=== PATIENT | female | born 1975 | race African-American/Black ===

== ENCOUNTER → 2018-08-01 | Outpatient (CLI) | payer OTHER ==
[~2018-08-01] MED LIST: REGADENOSON 0.4 MG/5 ML DISP.SYRIN. IV ONE
--- NOTE | 2018-08-01 13:32 | PCVCIMAG ---
APPROVED REPORT Study performed: 08/01/2018 11:34:44 EXAM: Comprehensive 2D, Doppler, and color-flow Echocardiogram Patient Location: Echo lab Status: routine BSA: 1.97 HR: 89 bpmBP: 128/84 mmHg Rhythm: NSR Other Information Study Quality: Adequate Indications Dyspnea Chest Pain PSVT 2D Dimensions IVSd: 9.63 (7-11mm) LVDd: 41.48 mm PWd: 8.91 (7-11mm)Ascending Ao: 27.19 (22-36mm) LVDs: 31.71 (25-40mm) Left Atrium: 39.03 (27-40mm) Aortic Root: 28.29 mm LV Single Plane 4CH: 50.77 % LV Single Plane 2CH: 51.80 % Biplane EF: 50.1 % Volumes Left Atrial Volume (Systole) Single Plane 4CH: 58.78 mLSingle Plane 2CH: 52.38 mL LA ESV Index: 29.00 mL/m2 Aortic Valve AoV Peak Suhail.: 1.26 m/s AO Peak Gr.: 6.32 mmHgLVOT Max P.76 mmHg LVOT Max V: 0.97 m/s Mitral Valve E/A Ratio: 1.2 MV Decel. Time: 225.10 ms MV E Max Suhail.: 0.73 m/s MV A Suhail.: 0.61 m/s IVRT: 89.97 ms Pulmonary Valve PV Peak Suhail.: 0.95 m/sPV Peak Gr.: 3.61 mmHg Pulmonary Vein P Vein S: 0.32 m/sP Vein A: 0.34 m/s P Vein D: 0.46 m/sP Vein A Dur.: 107.3 msec P Vein S/D Ratio: 0.70 Tricuspid Valve TR Peak Suhail.: 2.20 m/s TR Peak Gr.: 19.40 mmHg TV Vmax: 0.56 m/s Left Ventricle The left ventricle is normal size. There is normal LV segmental wall motion. There is normal left ventricular wall thickness. Left ventricular systolic function is normal. The left ventricular ejection fraction is within the normal range. LVEF is 50-55%. Grade I - abnormal relaxation pattern. Right Ventricle The right ventricle is normal size. The right ventricular systolic function is normal. Atria The left atrium size is normal. The right atrium size is normal. Aortic Valve The aortic valve is normal in structure. No aortic regurgitation is present. There is no aortic valvular stenosis. Mitral Valve The mitral valve is normal in structure. Trace mitral regurgitation. No evidence of mitral valve stenosis. Tricuspid Valve The tricuspid valve is normal in structure. Trace tricuspid regurgitation with PAP of 26 mmHg. Pulmonic Valve The pulmonary valve is normal in structure. Trace pulmonic regurgitation. Great Vessels The aortic root is normal in size. IVC is normal in size and collapses >50% with inspiration. Pericardium There is no pericardial effusion. There is no pleural effusion. <Conclusion> The left ventricle is normal size. LVEF is 50-55%. The aortic valve is normal in structure. The mitral valve is normal in structure. Trace mitral regurgitation. The tricuspid valve is normal in structure. Trace tricuspid regurgitation with PAP of 26 mmHg. The pulmonary valve is normal in structure. Trace pulmonic regurgitation. There is no pericardial effusion.
--- NOTE | 2018-08-02 11:59 | PCVCIMAG ---
APPROVED REPORT Imaging Protocol: Rest Tc-99m/Stress Tc-99m 1 day Study performed: 08/01/2018 12:32:06 Indication: Chest pain, Dyspnea, Hx of Ablation Patient Location: Out-Patient Stress Tech: SKYLER GaonaB Stress Nurse: Goldie Vang RN, Ana Luisa Montanez RN NM Tech:FABIOLA Isaacs Ht: 5 ft 0 in Wt: 220 lbs BSA: 1.94 m2 HR: 93 bpm BP: 134/80 mmHg BMI: 42.96 Rhythm: Sinus Rhythm Medical History Medical History: HTN, COPD Medications: Toprol XL Allergies: Many - none that interfered with test Previous Cardiac Procedures: SVT Ablation Pretest Chest Pain Characteristics: No chest pain Exercise History: Sedentary Meds Held (24 hrs): Toprol XL Resting Data Rest SPECT myocardial perfusion imaging was performed in supine position 45 minutes following the intravenous injection of 16 mCi of Tc-99m Sestamibi. Time of rest injection: 1245 Date: 08/01/2018 Administration Route: IV Administration Site: Right Arm Pharmacologic Stress Pharmacologic stress test was performed by injecting Regadenoson 0.4 mg IV push over 10-15 seconds immediately followed by the intravenous injection of 42.3 mCi of Tc-99m Sestamibi. Time of stress injection: 1415 Date: 08/01/2018 Administration Route: IV Administration Site: Right Arm Gated Stress SPECT was performed 45 minutes after stress injection. The images were gated to evaluate regional wall motion and calculate left ventricular ejection fraction. Stress Test Details Stress Test: Pharmacologic stress testing performed using 0.4 mg of regadenoson per 5 mL given IV over 10 seconds. Reason for pharmacologic stress test: physical limitation. HRMax Heart Rate (APMHR): 177 bpm Resting HR: 93 bpmTarget HR (85% APMHR): 150 bpm Max HR Achieved: 123 bpm % of APMHR: 69 Recovery HR: 109 bpm BP Resting BP: 134/80 mmHg Max BP: 137/81 mmHg Recovery BP: 134/74 mmHg ECG Resting ECG: Sinus Rhythm Stress ECG: Sinus Tachycardia Recovery ECG: Sinus Tachycardia Clinical Reason for Termination: Completed protocol Stress Symptoms: Dyspnea, Lightheaded Exercise duration: 0 min 55 sec Symptoms resolved with caffeine. Stress ECG Conclusion 1. Adequate response to intravenous Lexiscan 2. Inadequate heart rate for ECG diagnosis Study Data Post stress, the left ventricular ejection was 52%.. SSS: 0 SRS: 4 SDS: 0 TID = 0.92. Perfusion There is a medium area of moderately reduced uptake in the mid and apical segment of the anterior wall which is seen on the stress images as well as the resting images. This area thickens and moves normally and is most consistent with attenuation artifact. Wall Motion Normal left ventricular wall motion. Nuclear Conclusion ECG Findings: non-diagnostic Clinical Findings: negative for ischemia Nuclear Findings: negative for ischemia Exercise Capacity: not assessed Left Ventricular Function: normal 1. Low risk study 2. Post exercise left ventricular ejection fraction of 52% without wall motion abnormalities <Conclusion> 1. Adequate response to intravenous Lexiscan 2. Inadequate heart rate for ECG diagnosis
== END | disposition home or self-care (01) ==
LOC: PCVCIMAG 12:30
PROVIDERS: ATTEND Internal Medicine
DX: R06.00 Dyspnea, unspecified (principal); R07.9 Chest pain, unspecified; I47.1 Supraventricular tachycardia; J44.9 Chronic obstructive pulmonary disease, unspecified
CPT/HCPCS: 78452; 93017; 93306; A9500; J2785